=== PATIENT | male | born 2005 | race Caucasian/White ===

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

== ENCOUNTER 2025-03-30 14:52 | Emergency (ER) | payer MEDICAID, SELFPAY ==
[2025-03-30 14:54] VITALS: BP 131/81; PULSE 92; RESP 18; TEMP 36.2; O2SAT 100; BMI 42.3
[2025-03-30] MEDS: Ketorolac 15 MG/ML Vial IM (15:32)
--- NOTE | 2025-03-30 15:36 | EX.ED.UPPERE ---
HPI History of Present Illness Chief Complaint: Upper Extremity Injury Narrative Narrative: Patient is a 19-year-old male with no known significant past medical history who presented to the emergency department chief plaint of left shoulder pain. He states that he woke up this morning and noted that he had some discomfort and then on his way to work he noted that the pain worsened. He denies any injuries or trauma. He states that he took ibuprofen last night with mild relief even though he states that his pain started this morning. PFSH PFSH Home Medications ?Medication ?Instructions ?Recorded ?Last Taken ?Type ibuprofen 200 mg tablet (Advil) 600 mg PO Q8H pain 06/16/23 06/16/23 21:30 History Allergy/AdvReac Type Severity Reaction Status Date / Time No Known Allergies Allergy Verified 03/30/25 14:53 Social History household members: family housing: house Smoking Status: Never smoker ROS ROS ED ROS Narrative Constitutional: Denies any fevers or chills Neurological: Denies numbness,'s, weakness, tingling Musculoskeletal: Complains of left shoulder pain as noted above Skin: Denies any rashes or lesions EXAM Physical Exam Narrative Exam Narrative: General: Patient lying in bed rest comfortably did not appear to be acute distress Head: Atraumatic, normocephalic Eyes: PERRL bilaterally, EOMI bilateral, no conjunctival injection noted Neck: Soft, supple, trachea midline, nontender to palpation midline cervical spine Cardiovascular: Regular rate and rhythm Musculoskeletal: No tenderness palpation midline of the thoracolumbar spine patient has full range of motion of his left shoulder without any difficulty Extremities: +5/5 strength noted in the bilateral upper and lower EXTR, radial pulses +2/4 in the bilateral extremities, no pedal edema on exam Neurological: Patient follow commands knew that he was at [facility] the year is 2024. Sensation grossly intact in the axillary nerve distribution bilaterally, radial, ulnar and median nerve distributions bilaterally Skin: Warm, dry, intact no rashes or lesions noted Const Vital Signs: 03/30/25 14:54 Temperature 97.1 F L Temperature Source Temporal Pulse Rate 92 Respiratory Rate 18 Blood Pressure 131/81 H Blood Pressure Mean 97 Pulse Ox 100 Oxygen Delivery Method Room Air MDM MDM MDM Narrative Medical decision making narrative: Patient is a 19-year-old male who presents to the emergency department chief complaint of left shoulder pain. On the differential diagnose includes but limited to musculoskeletal strain, pathologic fracture. Once workup is obtained reviewed he will be reevaluated. Patient's will be given IM Toradol. Patient x-ray of shoulder reviewed by myself and by radiology showed no acute fracture dislocations noted with significant degenerative changes. Reevaluation patient they will like to go home at this point in time he is vies follow-up his doctor in outpatient setting return with worsening symptoms or concerns. Vies rotate Tylenol and I Profen [id number] for pain control. All question concerns answered he is discharged home in stable condition peer Discharge Plan Triage Chief Complaint: Upper Extremity Injury ED Provider: Hal Ku Dx/Rx/DC Orders Clinical Impression: Left shoulder pain Prescriptions: No Action ibuprofen [Advil] 200 mg tablet 600 mg PO Q8H Primary Care Provider: Care Physician,Sarah Primary Referrals: Care Physician,No Primary [Primary Care Provider] - Activity Restrictions/Additional Instructions: Your x-ray did not show any acute findings today. Rotate Tylenol and ibuprofen [id number] for pain control when you do this you can take something every 3 hours when rotating the two medications. Max dose of Tylenol in 24 hours 4000 mg, max dose of ibuprofen in 24 hours 3200 mg. Return with worsening symptoms or any other concerns. Print Language: Bolivian Disposition Disposition: Home, Self Care
--- NOTE | 2025-03-30 15:40 | RAD_ITS ---
PROCEDURE: SHOULDER MIN 2 VIEWS 03/30/2025 REASON FOR EXAM: PAIN, NO INJURY TECHNIQUE: SHOULDER MIN 2 VIEWS COMPARISON: None RAD/Shoulder min 2 Views IMPRESSION: No acute fracture or dislocations. No significant degenerative changes. No acute soft tissue abnormalities. No radiographic foreign body. Reading Location: [id number]
[2025-03-30 16:09] VITALS: BP 120/70; PULSE 92; RESP 18; TEMP 36.2; O2SAT 100
== END 2025-03-30 16:22 | disposition home or self-care (01) ==
PROVIDERS: Emergency Provider Emergency Medicine; Visit Provider Emergency Medicine
DX: M25.512 Pain in left shoulder (principal)
CPT/HCPCS: 73030; 96372; 99282

== ENCOUNTER 2025-05-12 08:26 | Emergency (ER) | payer MEDICAID, SELFPAY ==
[2025-05-12 08:27] VITALS: BP 111/94; PULSE 86; RESP 16; TEMP 36.9; O2SAT 100; BMI 42.3
[2025-05-12 08:29] VITALS: BP 141/86; PULSE 84; RESP 16; TEMP 36.7; O2SAT 99
--- NOTE | 2025-05-12 08:40 | EDS_ITS ---
HPI HPI - GI History of Present Illness Chief Complaint: Nausea/Vomiting Informant: patient Abdominal Pain/Flank Pain Onset: Days (4) Context: Gradual Onset Timing: Intermittent Quality: Dull and Sharp Location: Epigastric Worsened by: Movement Relieved by: Remaining Still Nausea/Vomiting/Emesis GI Symptom: Positive for Nausea and Vomiting Onset: Days (4) Quality: Positive for Blood streaks Diarrhea/Melena/Hematochezia GI Symptom: Negative for Diarrhea, Melena or Hematochezia Associated Symptoms Associated Symptoms: Negative for Dysuria, Frequency or Hematuria Narrative Narrative: Patient presents with nausea and vomiting that has been constant for the past 4 days. Patient states that today he had an episode where he vomited some blood. Patient states it was only 1 episode of hematemesis. Patient states it is a small amount of blood. Patient denies any melena or hematochezia. Patient admits to some upper abdominal pain. Patient describes it as sharp and dull. Patient states it comes and goes. Patient states it is worse with movement. Patient states it is better if he is able to stand still. Patient denies any dysuria, frequency, or hematuria. Patient also states that he slipped and fell 4 days ago. Patient is unsure if he hit his head. Patient states that his nausea and vomiting started later that evening. Patient admits to a frontal headache. PFSH PFSH Medical History no medical history no medical history Home Medications ?Medication ?Instructions ?Recorded ?Last Taken ?Type ibuprofen 200 mg tablet (Advil) 600 mg PO Q8H pain 07/2906/16/23 21:30 History ondansetron 4 mg disintegrating 4 mg PO Q8H PRN PRN Na usea #10 tabs 05/12/25 Unknown Rx tablet Allergy/AdvReac Type Severity Reaction Status Date / Time No Known Allergies Allergy Verified 03/30/25 14:53 Surgical History no surgical history no surgical history Social History household members: family housing: house Smoking Status: Never smoker ROS ROS ED Constitutional Constitutional ED: Denies chills or fever(s) Eyes Eyes: Reports blurry vision ENT ENT ED: Denies rhinorrhea or sore throat Cardiovascular Cardiovascular: Denies chest pain or palpitations Respiratory/Chest Respiratory/Chest: Denies cough or dyspnea Gastrointestinal Gastrointestinal: Reports abdominal pain, nausea and vomiting; Denies diarrhea or melena Genitourinary Genitourinary ED: Denies dysuria or hematuria Musculoskeletal Musculoskeletal: Denies back pain or neck pain Integumentary Denies abscess or rash Neurologic Neurologic: Reports headache(s); Denies weakness Allergic/Immunologic Allergic/Immunologic ED: Denies mouth swelling or urticaria EXAM Physical Exam Const Vital Signs: 05/12/25 08:27 05/12/25 08:29 05/12/25 10:27 Temperature 98.4 F 98.1 F Temperature Source Oral Oral Pulse Rate 86 84 85 Respiratory Rate 16 16 18 Blood Pressure 111/94 H 141/86 H 147/90 H Blood Pressure Mean 99 104 109 Pulse Ox 100 99 100 Oxygen Delivery Method Room Air Room Air Room Air Positive well nourished and well developed Constitutional Narrative: BMI is 42.3. General Appearance ED: well developed and NAD HEENT Reports moist mucous membranes Neck supple and no JVD Resp normal respiratory effort and clear to auscultation bilaterally Cardio regular rate and regular rhythm GI non-distended Palpation: soft and tender epigastric, LUQ and RUQ; Negative for guarding or rebound tenderness present Extremity full ROM Neuro CN's II-XII intact bilaterally, moves all extremities and no sensory deficits noted Sensorium / Orientation: alert Motor Exam: strength 5/5 throughout Psych mental status grossly normal MDM MDM MDM Narrative Medical decision making narrative: Differential diagnosis includes gastritis, Cynthia-Gonzalez tear, viral illness, electrolyte abnormality, anemia, dehydration, pancreatitis, cholecystitis, cholelithiasis, closed head injury, concussion, and intracranial bleeding. CBC will be obtained to assess for leukocytosis or anemia. Comprehensive metabolic profile will be obtained to assess for hepatic function, renal function, and electrolyte abnormality. Lipase will be obtained to assess for pancreatitis. PT with INR and PTT will be obtained to assess for coagulopathy. CT scan of the brain will be obtained to assess for intracranial bleeding. History & Record Review Additional record(s) reviewed:: Prior ED visit and Prior labs Lab Data Attestation: I reviewed the patient's lab results. Lab results narrative: CBC was reviewed and was within normal limits. Comprehensive metabolic profile was reviewed and was within normal limits. Lipase was reviewed and was normal at 17. PT with INR and PTT were reviewed and were within normal limits. Labs: Laboratory Results - last 24 hr 05/12/25 05/12/25 08:45 10:26 WBC 10.9 RBC 5.63 Hgb 16.0 Hct 46.8 MCV 83.1 MCH 28.4 MCHC 34.2 RDW Std Deviation 36.6 RDW Coeff of Ubaldo 12.2 Plt Count 316 MPV 10.5 Immature Gran % (Auto) 0.500 Neut % (Auto) 66.7 Lymph % (Auto) 23.8 Dane % (Auto) 6.8 Eos % (Auto) 1.7 Baso % (Auto) 0.5 Absolute Neuts (auto) 7.3 Absolute Lymphs (auto) 2.59 Nucleated RBC % 0 PT 13.7 INR 1.0 APTT 25.2 Sodium 138 Potassium 4.6 Chloride 101 Carbon Dioxide 23.8 Anion Gap 14 BUN 11 Creatinine 0.86 Estim Creat Clear Calc 182.88 Est GFR (MDRD) Non-Af 127 BUN/Creatinine Ratio 13.3 Glucose 93 Calcium 10.1 Total Bilirubin 0.32 AST 29 ALT 14 Alkaline Phosphatase 102 Total Protein 8.3 Albumin 4.4 Globulin 3.9 Albumin/Globulin Ratio 1.1 Lipase 17 Radiography Diagnostic Testing: Clinical Impression(s) from Imaging Studies Brain CT 05/12/25 08:54 IMPRESSION: No acute intracranial abnormality Reading Location: [facility] CT scan of the brain was obtained. There is no acute intracranial abnormality. This was interpreted by the radiologist and was also independently reviewed by myself. Treatment and Re-Evaluation :: Patient was given IV fluids and Zofran. Patient was feeling better on reevaluation. Patient was advised of his findings. Patient was advised that this is most likely a viral illness. Patient was advised that the blood in his emesis was likely from a Cynthia-Gonzalez tear. Patient was advised that this is benign and will usually heal up without any intervention. Patient was given a prescription for Zofran. Patient was instructed to start with a liquid diet and advance as tolerated. Patient was instructed to follow-up with his primary care physician in 5 to 7 days. Patient was instructed to return if worse in any way. Patient and mother understood and were agreeable with the plan. All questions were answered. Discharge Plan Triage Chief Complaint: Nausea/Vomiting ED Provider: Gene Rothman Dx/Rx/DC Orders Clinical Impression: Nausea and vomiting, Headache Instructions: ED Vomiting (Adult) Prescriptions: New ondansetron 4 mg tablet,disintegrating 4 mg PO Q8H PRN PRN (Reason: Nausea) Qty: 10 0RF No Action ibuprofen [Advil] 200 mg tablet 600 mg PO Q8H Stand Alone Forms: ED Work / School Excuse Primary Care Provider: Care Physician,No Primary Referrals: Jeancarlos Lopez MD [Med Staff - [employer]] - 5-7 Days Care Physician,No Primary [Primary Care Provider] - Print Language: Setswana Disposition Disposition: Home, Self Care
--- NOTE | 2025-05-12 08:54 | CT_ITS ---
PROCEDURE: BRAIN/HEAD WITHOUT CONTRAST 05/12/2025 REASON FOR EXAM: HEAD INJURY TECHNIQUE: BRAIN/HEAD WITHOUT CONTRAST Coronal and Sagittal reconstruction series were provided. One or more dose reduction techniques were used (e.g., Automated exposure control, adjustment of the mA and/or kV according to patient size, use of iterative reconstruction technique. RADIATION DOSE SUMMARY: CTDlvol: 45 mGy DLP: 812 mGycm COMPARISON: None FINDINGS: Brain: There is no evidence of hemorrhage, acute ischemia or mass. No extra- axial fluid collection, midline shift or mass effect. CSF Spaces: Normal Sinuses/Mastoids: Clear Bones: No fracture CT/Brain/Head without Contrast IMPRESSION: No acute intracranial abnormality Reading Location: [id number]
[2025-05-12] MEDS: 0.9% Normal Saline (1000mL) 1,000 ML 1000 ML IV (09:13)
[2025-05-12 09:27] LABS: Hematocrit 46.8 % (40-54); Hemoglobin 16.0 g/dL (13.0-16.5); Immature Granulocytes Count 0.050 X10^3/uL (0.0-0.0); Mean Corp Hgb Conc 34.2 g/dL (32-36); Mean Corpuscular Volume 83.1 fL (80-94); Mean Platelet Vol. 10.5 fl (6.2-12.0); NRBC Flagged by Analyzer 0 % (0-5); Platelet Count 316 K/mm3 (150-450); RBC Distribution Width CV 12.2 % (11.6-14.6); RBC Distribution Width SD 36.6 fl (35.1-43.9); Red Blood Count 5.63 M/mm3 (4.6-6.2); White Blood Count 10.9 K/mm3 (4.4-11.0)
[2025-05-12 09:52] LABS: Lipase 17 U/L (13-75)
[2025-05-12 09:54] LABS: AST(SGOT) 29 U/L (<=37); Alanine Aminotransfer ALT/SGPT 14 U/L (<=46); Albumin, Serum 4.4 g/dL (3.5-5.0); Alkaline Phosphatase 102 U/L (40-129); Anion Gap 14 (5-15); BUN 11 mg/dL (4-19); BUN/Creat Ratio 13.3 RATIO (10-20); Calcium,Total 10.1 mg/dL (7.6-11.0); Carbon Dioxide 23.8 mmol/L (21.0-32.0); Chloride 101 mmol/L (98-108); Estimated Creatinine Clearance 182.88 ml/min (50-250); Globulin 3.9 g/dL (2.2-4.2); Glucose 93 mg/dL (70-99); Potassium 4.6 mmol/L (3.3-5.1)
[2025-05-12 10:27] VITALS: BP 147/90; PULSE 85; RESP 18; O2SAT 100
[2025-05-12 10:45] LABS: Prothrombin Time (Protime)PT. 13.7 SECONDS (11.7-14.9)
[2025-05-12 10:46] LABS: Partial Thromboplast Time 25.2 Seconds (24.1-36.2)
[2025-05-12 11:57] VITALS: BP 133/73; PULSE 70; RESP 16; TEMP 36.8; O2SAT 99
== END 2025-05-12 11:58 | disposition home or self-care (01) ==
PROVIDERS: Emergency Provider Emergency Medicine; Visit Provider Emergency Medicine
DX: R11.2 Nausea with vomiting, unspecified (principal); R51.9 Headache, unspecified
CPT/HCPCS: 36415; 70450; 80053; 83690; 85025; 85610; 85730; 96361; 96374; 99283; A4216; J2405

== ENCOUNTER 2025-08-03 13:44 | Emergency (ER) | payer MEDICAID, SELFPAY ==
[2025-08-03 13:44] VITALS: BP 154/79; PULSE 87; RESP 18; TEMP 36.8; O2SAT 99; BMI 32.0
--- NOTE | 2025-08-03 13:52 | ED.VIS.LOWEX ---
HPI History of Present Illness Chief Complaint: Lower Extremity Injury Detail of Chief Complaint: Left knee injury Informant: patient Narrative Narrative: Patient presents with left knee injury that occurred 3 days ago. Patient states that he was playing golf and went to swing the club and felt a pop in his knee. Patient having a hard time bearing weight since that time. No other significant medical history PFSH PFSH Medical History no medical history Home Medications ?Medication ?Instructions ?Recorded ?Last Taken ?Type ibuprofen 200 mg tablet (Advil) 600 mg PO Q8H pain 06/16/23 06/16/23 21:30 History ondansetron 4 mg disintegrating 4 mg PO Q8H PRN PRN Nausea #10 tabs 05/12/25 Unknown Rx tablet Allergy/AdvReac Type Severity Reaction Status Date / Time No Known Allergies Allergy Verified 08/03/25 13:45 Social History household members: family housing: house Smoking Status: Never smoker ROS ROS ED Review of Systems ROS Unobtainable: other Constitutional Constitutional ED: Reports lethargy; Denies chills, fever(s), sweats or weight loss Eyes Eyes: Denies blurry vision, change in vision or diplopia ENT ENT ED: Denies rhinorrhea or sore throat Cardiovascular Cardiovascular: Denies chest pain, orthopnea or racing heartbeat Respiratory/Chest Respiratory/Chest: Denies cough, dyspnea, dyspnea on exertion, orthopnea or sputum Gastrointestinal Gastrointestinal: Denies abdominal pain, diarrhea, nausea or vomiting Genitourinary Genitourinary ED: Denies dysuria, hematuria or urinary frequency Musculoskeletal Musculoskeletal: Reports other Details: Left knee pain/injury ; Denies arthralgias, back pain, myalgias or neck pain Integumentary Denies abscess, Abrasions or rash Neurologic Neurologic: Denies headache(s) or weakness Psychiatric Psychiatric: Denies anxiety, depression or suicidal thoughts Endocrine Endocrinology: Denies polydipsia, polyphagia or polyuria Hematologic/Lymphatic Hematologic/Lymphatic: Denies easy bleeding, easy bruising or lymphadenopathy Allergic/Immunologic Allergic/Immunologic ED: Denies mouth swelling, tongue swelling or urticaria EXAM Physical Exam Const Vital Signs: 08/03/25 13:44 Temperature 98.2 F Temperature Source Temporal Pulse Rate 87 Respiratory Rate 18 Blood Pressure 154/79 H Blood Pressure Mean 104 Pulse Ox 99 Oxygen Delivery Method Room Air Positive well nourished and well developed General Appearance ED: well developed and NAD HEENT Reports TM's clear and moist mucous membranes normocephalic and atraumatic; Negative for trauma or tenderness Tympanic Membrane ED: Yes TM's clear Eyes PERRL and EOMs intact bilaterally General Eye ED: Negative for pale conjunctiva or scleral icterus Neck no lymphadenopathy, supple and no JVD General: Negative for tenderness Chest Wall inspection of chest normal and palpation of chest normal Chest: Negative for tenderness Resp normal respiratory effort and clear to auscultation bilaterally Effort and Inspection: Negative for respiratory distress or pain with movement Auscultation: Negative for rhonchi, wheezes or diminished lung sounds Cardio regular rate, regular rhythm, S1 normal heart sound, S2 normal heart sound and no murmurs Peripheral Pulses: pulses 2+ throughout GI normal to inspection, nondistended, normoactive bowel sounds, soft to palpation, non-tender, non-distended and no masses Back/Spine no CVA tenderness and no thoracic nor lumbar tenderness Extremity Extremity Narrative: Left knee-no obvious deformity. There is no ecchymosis or bruising. There is no effusion noted. Normal anterior and posterior drawer test. No ligamentous laxity noted with varus or valgus stress. Neurovascular intact distally General Extremety ED: Negative for edema General Extremity: Negative for edema Neuro oriented x3, CN's II-XII intact bilaterally, no sensory deficits noted and gait normal Sensorium / Orientation: awake, alert, oriented to person, oriented to place and oriented to time Motor Exam: strength 5/5 throughout and strength abnormal Psych mental status grossly normal Skin no rashes or lesions noted and no wounds MDM MDM MDM Narrative Medical decision making narrative: Patient presents with pain to the left knee after golfing and hearing a pop. Pain with walking. In the differential would be meniscal injury or ligamentous injury versus knee subluxation. Injury occurred 3 days ago. Patient has been bearing some weight. 4 view x-rays of the left knee obtained interpreted by myself as no evidence of fracture or dislocation. This point he will be placed in a knee immobilizer and given crutches. He is advised to use ibuprofen or Tylenol for discomfort. Will refer to orthopedics for follow-up. May need further imaging such as possibly MRI if symptoms do not improve to rule out ligamentous injury or meniscal injury. Radiography Diagnostic Testin view x-rays of the left knee obtained interpreted by myself as no evidence of fracture or dislocation Discharge Plan Triage Chief Complaint: Lower Extremity Injury ED Provider: Marimar Ann Dx/Rx/DC Orders Clinical Impression: Left knee sprain Instructions: ED Knee Sprain Prescriptions: No Action ibuprofen [Advil] 200 mg tablet 600 mg PO Q8H ondansetron 4 mg tablet,disintegrating 4 mg PO Q8H PRN PRN (Reason: Nausea) Qty: 10 0RF Primary Care Provider: Care Physician,No Primary Referrals: Good Latif DO [Med Staff - Active Staff, Orthopedics] - 3-5 Days Care Physician,No Primary [Primary Care Provider, Medical] Print Language: Iraqi Disposition Disposition: Home, Self Care
--- NOTE | 2025-08-03 14:00 | RAD_ITS ---
PROCEDURE: RAD/Knee 4 or More Views
[2025-08-03 14:41] VITALS: PULSE 16
== END 2025-08-03 14:42 | disposition home or self-care (01) ==
PROVIDERS: Emergency Provider Emergency Medicine; Visit Provider Emergency Medicine
DX: S83.92XA Sprain of unspecified site of left knee, initial encounter (principal); X58.XXXA Exposure to other specified factors, initial encounter; Y93.53 Activity, golf
CPT/HCPCS: 73564; 99284

== ENCOUNTER → 2025-08-13 | Outpatient (CLI) | payer MEDICAID, SELFPAY ==
--- NOTE | 2025-08-13 14:54 | MRI_ITS ---
PROCEDURE: LOWER EXT JOINT ONLY (ROUTINE) 08/13/2025 REASON FOR EXAM: RULE OUT MEDIAL MENISCUS TEAR TECHNIQUE: Procedure Code: MRILEJ Modality: MR Procedure: LOWER EXT JOINT ONLY (ROUTINE) Multiplanar and multisequence images were obtained without IV contrast administration. COMPARISON: COMPARISON : FINDINGS: The ACL and PCL are intact. The medial and lateral menisci are intact without MR evidence of a definite tear. Moderate fluid signal adjacent to the MCL without appreciable thickening or thinning of the MCL is consistent with a mild sprain (grade 1 injury. The LCL complex appears unremarkable. Very mild patellar chondromalacia. Otherwise the patella appears unremarkable. Medial and lateral patellar retinaculum are intact. The visualized distal quadriceps and patellar tendons appear intact and unremarkable. No sizable joint effusion. Nonspecific marrow edema is noted along the lateral aspect of the lateral femoral condyle. This could represent a bone contusion. The remainder of the bone marrow signal is unremarkable. The periarticular musculature and subcutaneous fat appear unremarkable. MRI/Lower Ext Joint Only (Routine) IMPRESSION: Mild MCL sprain (grade 1 injury). Very mild patellar chondromalacia. Nonspecific marrow edema within the lateral femoral condyle, possibly a bone co ntusion. Please correlate clinically. Reading Location: [id number] [place]
== END | disposition home or self-care (01) ==
LOC: MRI 14:52
PROVIDERS: Referring Provider Orthopaedic Surgery; Visit Provider Orthopaedic Surgery
DX: M25.562 Pain in left knee (principal)
CPT/HCPCS: 73721